=== PATIENT | male | born 2000 | race African-American/Black ===

== ENCOUNTER 2021-06-02 16:03 | Emergency (ER) | payer OTHER ==
[~2021-06-02] VITALS: Ht 180.3 cm; Wt 111.0 kg
[2021-06-02 16:42] VITALS: BP 151/99
[2021-06-02] MEDS ORDERED: LISI10TA16 PO (16:49)
--- NOTE | 2021-06-02 16:50 | RAD ---
XR EXAM OF ANKLE_RIGHT 3VIEWS DATE: 06/02/2021 4:30 PM INDICATION: rolled ankle, pain COMPARISON: None. FINDINGS: Bones: Avulsed fragment at the inferior tip of the medial malleolus. Joints: The ankle mortise is congruent. No widening of the distal tibiofibular syndesmosis. Miscellaneous: Soft tissue swelling about the ankle. IMPRESSION: Avulsed fragment at the inferior tip of the medial malleolus Electronically signed by: Samson Hinton MD (06/02/2021 4:48 PM) [facility]
--- NOTE | 2021-06-02 16:50 | PHYS DOC ---
General Adult EDM: Chief Complaint: ANKLE PROBLEM HPI: HPI: 20-year-old male presents with right ankle swelling and pain. He was playing volleyball when he came down and rolled his foot medially. The patient has had a sprained ankle before and believes this is likely has now. It is quite swollen over the lateral malleolus. He is able to walk. He does not complain of any other injuries at this time. Review of Systems: Review of Systems: Constitutional: Denies fever or chills Eyes: Denies change in visual acuity HENT: Denies nasal congestion or sore throat Respiratory: Denies cough or shortness of breath Cardiovascular: Denies chest pain or edema GI: Denies abdominal pain, nausea, vomiting, bloody stools or diarrhea : Denies dysuria Musculoskeletal: Right ankle pain Integument: Denies rash Neurologic: Denies headache, focal weakness or sensory changes Endocrine: Denies polyuria or polydipsia Lymphatic: Denies swollen glands Psychiatric: Denies depression or anxiety Allergies: Allergies: Allergies Coded Allergies Type Severity Reaction Last Updated Verified cinnamon Allergy Unknown 06/02/21 Yes egg Allergy Unknown 06/02/21 Yes mushroom Allergy Unknown 06/02/21 Yes Physical Exam: PE: Constitutional: Well developed, well nourished, no acute distress, non-toxic appearance. [] HENT: Normocephalic, atraumatic, bilateral external ears normal, oropharynx moist, no oral exudates, nose normal. [] Eyes: PERRLA, EOMI, conjunctiva normal, no discharge. [] Neck: Normal range of motion, no tenderness, supple, no stridor. [] Cardiovascular:Heart rate regular rhythm, no murmur [] Lungs & Thorax: Bilateral breath sounds clear to auscultation [] Abdomen: Bowel sounds normal, soft, no tenderness, no masses, no pulsatile masses. [] Skin: Warm, dry, no erythema, no rash. [] Back: No tenderness, no CVA tenderness. [] Extremities: Swelling of the right lateral ankle, no ecchymosis or obvious deformity. Minimally tender to palpation. [] Neurologic: Alert and oriented X 3, normal motor function, normal sensory function, no focal deficits noted. [] Psychologic: Affect normal, judgement normal, mood normal. [] EKG: EKG: [] Radiology/Procedures: Radiology/Procedures: [] Heart Score: C/O Chest Pain: N/A Risk Factors: Risk Factors: DM, Current or recent (<one month) smoker, HTN, HLP, family history of CAD, obesity. Risk Scores: Score 0 - 3: 2.5% MACE over next 6 weeks - Discharge Home Score 4 - 6: 20.3% MACE over next 6 weeks - Admit for Clinical Observation Score 7 - 10: 72.7% MACE over next 6 weeks - Early Invasive Strategies Course & Med Decision Making: Course & Med Decision Making Pertinent Labs and Imaging studies reviewed. (See chart for details) The patient's x-ray is negative for fracture. He has a sprained ankle. We will place him in a stirrup splint. The patient has requested that I give him prescription for lisinopril. He is hypertensive in the ED. He tells me he is supposed to be on this medication but [place] get into [place] [facility] [place] [facility] [place] [facility] [place] more [place]. I will give him a prescription of lisinopril 10 mg daily for 30 days. He is stable for discharge at this time. [] Dragon Disclaimer: Dragon Disclaimer: This electronic medical record was generated, in whole or in part, using a voice recognition dictation system. Departure Departure: Impression: Primary Impression: Moderate right ankle sprain Qualified Codes: S93.401A - Sprain of unspecified ligament of right ankle, initial encounter Additional Impression: Hypertension Qualified Codes: I10 - Essential (primary) hypertension Disposition: HOME / SELF CARE / HOMELESS Condition: STABLE Referrals: JOSE PARK DO (PCP) Patient Instructions: Ankle Sprain, Acute, with Phase I [facility] Lisinopril (LISINOPRIL) 10 Mg Tablet 1 TAB PO DAILY for hypertension, #30 TAB Prov: GIBRAN SILVA DO 06/02/21 GIBRAN SILVA DO Jun 02, 2021 16:50
== END 2021-06-02 17:00 | disposition home or self-care (01) ==
LOC: ER 16:03
DX: S93.401A Sprain of unspecified ligament of right ankle, initial encounter (principal); I10 Essential (primary) hypertension; Z91.012 Allergy to eggs; Z91.018 Allergy to other foods; X50.9XXA Other and unspecified overexertion or strenuous movements or postures, initial encounter; Y93.68 Activity, volleyball (beach) (court); Y92.89 Other specified places as the place of occurrence of the external cause; Y99.8 Other external cause status
CPT/HCPCS: 29515; 73610; 99283